=== PATIENT | female | born 1955 | race Caucasian/White ===

== ENCOUNTER 2016-12-29 15:37 | Emergency (ER) | payer BC ==
--- NOTE | 2016-12-29 15:49 | ED Physician Documentation ---
General Adult - HISTORIAN Historian: patient - HPI Stated Complaint: toe injury Chief Complaint: General Adult Onset: days ago (1) Timing: still present Severity: moderate Further Comments: yes (Pt is a 61 yo female who dropped a lamp base on her L great toe last evening. Toe has become red and swollen and tender. Pt may have had slight bleeding yesterday. Tetanus in not utd.) - ROS CONST: no problems EYES/ENT: none CVS/RESP: none GI/: none MS/SKIN/LYMPH: other (L great toe injury) - PAST HX Past History: other (hx osteopenia) Surgeries/Procedures: other (appendectomy) Allergies/Adverse Reactions: Allergies Allergy/AdvReac Type Severity Reaction Status Date / Time morphine AdvReac Drowsiness Verified 12/29/16 15:48 Home Medications: Ambulatory Orders Medication Instructions Recorded Doxycycline Monohydrate 100 mg PO Q12H #14 tablet 12/29/16 - SOCIAL HX Smoking History: non-smoker - FAMILY HX Family History: No - REVIEWED ASSESSMENTS Nursing Assessment Reviewed: Yes Vitals Reviewed: Yes Progress - Progress Progress: X-ray L great toe: There is a 1st metatarsal bunion. Soft tissue swelling is present. 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 No fracture or bone destruction seen. Post-op shoe. Rx Doxycycline 100 mg. Take one by mouth every 12 hrs for 7 days. Avoid prolonged sun exposure while taking Doxycycline. General Adult Physical Exam - PHYSICAL EXAM GENERAL APPEARANCE: mild distress NECK: normal inspection, supple RESPIRATORY: no resp distress BACK: normal inspection SKIN: other (ecchymosis over L great toe, with erythema, ? infection, proximally. ) EXTREMITIES: other (ecchymosis over L great toe, with erythema, ? infection, proximally. ) NEURO: oriented X3, motor nml, sensation nml Discharge Clincal Impression: possible early cellulitis L great toe Injury of left great toe Qualifiers: Encounter type: initial encounter Qualified Code(s): S99.922A - Unspecified injury of left foot, initial encounter Prescriptions: Doxycycline Monohydrate 100 mg PO Q12H #14 tablet Referrals: Lou Saravia, PRN [Primary Care Provider] - Home Medications: Ambulatory Orders Doxycycline Monohydrate 100 mg PO Q12H #14 tablet 12/29/16 Condition: Good Disposition: 01 HOME, SELF-CARE Decision to Admit: NO Decision Time: 16:48
[2016-12-29 15:58] VITALS: BP 132/64
[2016-12-29] MEDS ORDERED: DIPH,PERTUSS(ACELL),TET VAC/PF 0.5 ML DISP.SYRIN IM ONE (16:16)
--- NOTE | 2016-12-29 19:03 | Diagnostic Imaging Report ---
YORDAN LOZADA [facility] [address] [facility] [address] [address] Report Submission Date: Dec 29, 2016 4:38:39 PM SWATCH CUTTER Patient Study Name: MOON CHUN Date: Dec 29, 2016 4:17:17 PM SWATCH CUTTER Modality Type: CR Gender: F Description: LOWER EXTREMITY : 51 Institution: [facility] Physician: YORDAN LOZADA Left 1st toe Clinical history: Pain Technique: AP lateral oblique left 1st toe Findings: There is a 1st metatarsal bunion. Soft tissue swelling is present. 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 No fracture or bone destruction seen. Impression: Degenerative arthritis 1st metatarsal bunion Soft tissue swelling Electronically signed on Dec 29, 2016 4:38:39 PM SWATCH CUTTER by: Romeo MORRIS
== END 2016-12-29 17:12 | disposition home or self-care (01) ==
LOC: ED 15:37
DX: S99.922A Unspecified injury of left foot, initial encounter (principal); X58.XXXA Exposure to other specified factors, initial encounter; Y93.9 Activity, unspecified; Y99.9 Unspecified external cause status
CPT/HCPCS: 73660; 90715; L3260; 90471; 99283